=== PATIENT | male | born 1940 | race Caucasian/White ===

== ENCOUNTER → 2021-05-13 13:42 | Outpatient (CLI) | payer MEDICARE, OTHER, SELFPAY ==
--- NOTE | 2021-05-13 13:46 | DI.RAD.S_ITS ---
PROCEDURE: XR KNEE LT 3V INDICATIONS: chronic left knee pain TECHNIQUE: 3 views of the knee were acquired. COMPARISON: None. FINDINGS: Bones: No fractures or dislocations. No suspicious bony lesions. Moderate medial lateral compartmental joint space narrowing. Moderate patellofemoral joint space narrowing as well. Soft tissues: No joint effusion. No suspicious soft tissue calcifications. 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 on 05/13/2021 at 15:58
--- NOTE | 2021-05-13 13:46 | DI.RAD.S_ITS ---
PROCEDURE: XR ANKLE LT MIN 3V INDICATIONS: chronic left ankle pain TECHNIQUE: 3 views of the ankle were acquired. COMPARISON: None. FINDINGS: Bones: No fractures or dislocations. Ankle mortise is normally aligned. No suspicious bony lesions. 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 Midfoot degenerative arthritis. Soft tissues: No tibiotalar joint effusion. Achilles tendon appears normal. IMPRESSION: Degenerative arthritis. No evidence acute bony abnormality of the left ankle. If clinical suspicion and/or symptoms persist, further assessment with repeat plain films, or advanced imaging (e.g., CT, MRI, or bone scan) may be helpful for further assessment. Dictated by: Nomi Carlin M.D. on 05/13/2021 at 14:46 Approved by: Nomi Carlin M.D. on 05/13/2021 at 14:47
== END ==
PROVIDERS: PCP Family Medicine; Referring Provider Family Medicine; Visit Provider Family Medicine
DX: M17.12 Unilateral primary osteoarthritis, left knee (principal); M25.562 Pain in left knee; M19.072 Primary osteoarthritis, left ankle and foot; M25.572 Pain in left ankle and joints of left foot; G89.29 Other chronic pain
CPT/HCPCS: 73562; 73610

== ENCOUNTER → 2021-10-08 10:02 | Outpatient (CLI) | payer MEDICARE, OTHER, SELFPAY ==
[2021-10-08 11:53] LABS: Add Manual Diff / Slide Review NO; Basophils Absolute Auto 0 /uL (0-100); Basophils Percent Auto 0.5 % (0-2); Eosinophils Absolute Auto 100 /uL (0-450); Eosinophils Percent Auto 1.3 % (2-4); Hematocrit 43.4 % (41-53); Hemoglobin 14.7 g/dL (13.5-17.5); Lymphocytes Absolute Auto 1000 /uL (1100-4500); Lymphocytes Percent Auto 12.6 % (25-40); Mean Corpuscular Hemoglobin 31.6 PG (26-34); Mean Corpuscular Volume 93.2 fL (80-100); Monocytes Absolute Auto 700 /uL (0-900); Neutrophils Absolute Auto 6300 /uL (1500-7000); Neutrophils Percent Auto 76.6 % (50-75); Platelet Count 204 X10^3/uL (150-400); Red Blood Cell Count 4.65 X10^6/uL (4.5-5.9); Red Cell Distribution Width 13.8 % (11.6-14.8); White Blood Cell Count 8.2 X10^3/uL (4.5-11.0)
[2021-10-08 12:33] LABS: Alanine Aminotransferase 18 IU/L (<50); Albumin Globulin Ratio 1.2 (1.0-2.8); Alkaline Phosphatase 68 U/L (38-126); Aspartate Aminotransferase 23 IU/L (17-59); BUN Creatinine Ratio 11.5 (6-22); Bilirubin Total 0.7 mg/dL (0.2-1.3); Blood Urea Nitrogen 12 mg/dL (9-20); Calcium 9.1 mg/dL (8.4-10.2); Carbon Dioxide 27 mmol/L (22-32); Chloride 104 mmol/L (98-107); Cholesterol 151 mg/dL (140-199); Estimated Glomerular Filt Rate > 60 mL/min (>60); Globulin 3.4 g/dL (1.7-4.1); Glucose 90 mg/dL (80-110); HDL Cholesterol 36 mg/dL (40-60); HEMOLYSIS < 15 (0-50); LDL Cholesterol Calculated 93 mg/dL (<100); Potassium 4.2 mmol/L (3.4-5.1); Sodium 140 mmol/L (137-145); Total Protein 7.4 g/dL (6.3-8.2); Triglycerides 110 mg/dL (35-150)
[2021-10-08 13:04] LABS: Prostate Specific Antigen Scrn 5.03 ng/mL (0.1-4.0)
[2021-10-08 16:27] LABS: Creatinine Urine Random 305.8 mg/dL
[2021-10-08 16:28] LABS: Microalbumin Urine Random 3.7 mg/dL (0-1.6)
== END ==
PROVIDERS: PCP Family Medicine; Referring Provider Family Medicine; Visit Provider Family Medicine
DX: I10 Essential (primary) hypertension (principal); Z12.5 Encounter for screening for malignant neoplasm of prostate; N40.0 Benign prostatic hyperplasia without lower urinary tract symptoms; M10.9 Gout, unspecified; I48.91 Unspecified atrial fibrillation
CPT/HCPCS: 36415; 80053; 80061; 82043; 82570; 84443; 85025; G0103

== ENCOUNTER → 2022-09-29 10:01 | Outpatient (CLI) | payer MEDICARE, OTHER, SELFPAY ==
--- NOTE | 2022-09-29 10:05 | DI.RAD.S_ITS ---
PROCEDURE: XR HIP W PEL IF DONE LT 2V INDICATIONS: left hip and low back pain TECHNIQUE: 2 views of the hip were acquired. COMPARISON: None. FINDINGS: Bones: No fractures or dislocations. No suspicious bony lesions. The visualized pelvic ring appears intact. Lower lumbar spine degenerative changes noted. Moderate bilateral hip joint space narrowing. No marginal osteophyte. No fracture. Soft tissues: No suspicious soft tissue calcifications or masses. IMPRESSION: Moderate bilateral hip joint space narrowing. No marginal osteophyte. Approved by: Ameya Zheng M.D. on 09/29/2022 at 13:07
--- NOTE | 2022-09-29 10:05 | DI.RAD.S_ITS ---
PROCEDURE: XR LUMBAR SPINE 2-3V INDICATIONS: left hip and low back pain TECHNIQUE: 3 views of the lumbar spine were acquired. COMPARISON: None. FINDINGS: Bones: 5 [id number] vertebrae are present. There is normal bony alignment. No vertebral body compression fractures. No suspicious bony lesions. Disc space narrowing, arthropathy anterior osteophytes noted throughout the exam. Grade 1 anterior spondylolisthesis L4-5 Soft tissues: Overlying bowel gas pattern is normal. No suspicious soft tissue calcifications. IMPRESSION: Degenerative disc disease and arthropathy results in grade 1 anterior spondylolisthesis L4-5 Approved by: Ameya Zheng M.D. on 09/29/2022 at 13:06
[2022-09-29 11:10] LABS: Add Manual Diff / Slide Review NO; Basophils Absolute Auto 0 /uL (0-100); Basophils Percent Auto 0.5 % (0-2); Eosinophils Absolute Auto 100 /uL (0-450); Eosinophils Percent Auto 1.2 % (2-4); Hematocrit 44.9 % (41-53); Hemoglobin 15.2 g/dL (13.5-17.5); Lymphocytes Absolute Auto 1400 /uL (1100-4500); Lymphocytes Percent Auto 13.3 % (25-40); Mean Corpuscular HGB Conc 33.9 % (30-36); Mean Corpuscular Hemoglobin 31.7 PG (26-34); Mean Corpuscular Volume 93.6 fL (80-100); Monocytes Absolute Auto 900 /uL (0-900); Monocytes Percent Auto 8.9 % (3-14); Neutrophils Absolute Auto 8100 /uL (1500-7000); Neutrophils Percent Auto 76.1 % (50-75); Platelet Count 227 X10^3/uL (150-400); White Blood Cell Count 10.7 X10^3/uL (4.5-11.0)
[2022-09-29 12:12] LABS: Alanine Aminotransferase 22 IU/L (<50); Albumin 4.2 g/dL (3.5-5.0); Albumin Globulin Ratio 1.2 (1.0-2.8); Alkaline Phosphatase 76 U/L (38-126); Aspartate Aminotransferase 27 IU/L (17-59); BUN Creatinine Ratio 10.4 (6-22); Bilirubin Total 0.8 mg/dL (0.2-1.3); Blood Urea Nitrogen 12 mg/dL (9-20); Calcium 9.4 mg/dL (8.4-10.2); Carbon Dioxide 27 mmol/L (22-32); Chloride 103 mmol/L (98-107); Cholesterol 159 mg/dL (140-199); Estimated Glomerular Filt Rate > 60 mL/min (>60); Globulin 3.5 g/dL (1.7-4.1); Glucose 93 mg/dL (80-110); HDL Cholesterol 38 mg/dL (40-60); HEMOLYSIS 30 (0-50); LDL Cholesterol Calculated 92 mg/dL (<100); Potassium 4.2 mmol/L (3.4-5.1); Sodium 140 mmol/L (137-145); Total Protein 7.7 g/dL (6.3-8.2); Triglycerides 143 mg/dL (35-150)
[2022-09-29 12:48] LABS: TSH w/ Reflex to FT4 5.23 uIU/mL (0.47-4.68)
[2022-09-29 13:01] LABS: Creatinine Urine Random 287.8 mg/dL
[2022-09-29 13:06] LABS: Microalbumi Creatinin Ratio Ur 13.2 ug/mg CR (<30); Microalbumin Urine Random 3.8 mg/dL (0-1.6)
[2022-09-29 13:13] LABS: Free T4, Direct Thyroxine 1.04 ng/dL (0.78-2.19)
== END ==
LOC: LAB 10:02 → RAD 10:06
PROVIDERS: PCP Family Medicine; Referring Provider Family Medicine; Visit Provider Family Medicine
DX: M43.16 Spondylolisthesis, lumbar region (principal); M51.36 Other intervertebral disc degeneration, lumbar region; M47.816 Spondylosis without myelopathy or radiculopathy, lumbar region; M25.552 Pain in left hip; I10 Essential (primary) hypertension; M54.50 Low back pain, unspecified; Z00.00 Encounter for general adult medical examination without abnormal findings; I48.91 Unspecified atrial fibrillation; M10.9 Gout, unspecified; N40.0 Benign prostatic hyperplasia without lower urinary tract symptoms
CPT/HCPCS: 36415; 72100; 73502; 80053; 80061; 82043; 82570; 84439; 84443; 85025

== ENCOUNTER 2022-11-11 07:30 | Outpatient (RCR) | payer MEDICARE, OTHER, SELFPAY ==
--- NOTE | 2022-11-03 17:02 | PT.OIE ---
Current Diagnoses Bilateral primary osteoarthritis of hip (11/03/22) Spondylosis without myelopathy or radiculopathy, site unspecified (11/03/22) Past Medical History (Last Updated 06/06/21 @ 13:14 by Maria Elena Mccarty) Afib BPH (benign prostatic hyperplasia) Gout (~1997) Hypertension Visit Care Team Role Provider Type Florin Marcum MD Attending Provider Physician Primary Care Provider Referring Provider Specialty: [facility] Address: [address] [place] [address], [facility] Email: [email or web address] Physical Therapy Initial Evaluation PT-OP-A Visit Information Start: 11/03/22 16:51 Freq: Status: Active Protocol: Document 11/03/22 16:52 ED (Rec: 11/03/22 17:02 ED [id number]) Out-Patient Physical Therapy Visit Information Visit Information Visit Type Initial Evaluation Visit Note 02/17 Visit Start Time 12:45 Visit Stop Time 13:30 Total Visit Minutes 45 Visit Number 1 Evaluation Information Evaluation Date 11/03/22 PT-OP-B Current Condition Start: 11/03/22 16:51 Freq: Status: Active Protocol: Document 11/03/22 16:52 ED (Rec: 11/03/22 17:02 ED [id number]) Current Condition History of Current Condition Onset Date March Current Complaints low back pain, L hip pain History of Current Condition Pt states that about 8 months ago that he noticed he had an abnormal gait that was sometimes accompanied with L hip or low back pain. Pt states that previously he was walking normally. He denied having any particular movement or daily activity that particularly aggravated his low back pain or hip; it is rather consistent. He is not currently exercising but used to prior to COVID. Treatment Goals Patient/Caregiver Goals be able to walk normally again PT-OP-C Subjective Start: 11/03/22 16:51 Freq: Status: Active Protocol: Document 11/03/22 16:52 ED (Rec: 11/03/22 17:02 ED [id number]) Patient Questionnaires Oswestry Low Back Index Oswestry Score 50 = 26.0 % Oswestry Impairment 20 to 39% Impaired (Score 20- 39) PT-OP-D Balance Start: 11/03/22 16:51 Freq: Status: Active Protocol: Document 11/03/22 16:52 ED (Rec: 11/03/22 17:02 ED [id number]) Balance Tests Single Limb Standing Single Limb- Right unable Single Limb- Left unable PT-OP-E Functional Tests Start: 11/03/22 16:51 Freq: Status: Active Protocol: Document 11/03/22 16:52 ED (Rec: 11/03/22 17:02 ED [id number]) Functional Tests 30 Second Sit to Stand Test Score 9 Comments IE: 11/03; 18'' seat no UEs PT-OP-K Range of Motion Start: 11/03/22 16:51 Freq: Status: Active Protocol: Document 11/03/22 16:52 ED (Rec: 11/03/22 17:02 ED [id number]) Lumbar Spine Range of Motion Lumbar Spine Active Testing Position Sitting Flexion 40 Extension 5 PT-OP-L Special Tests Start: 11/03/22 16:51 Freq: Status: Active Protocol: Document 11/03/22 16:52 ED (Rec: 11/03/22 17:02 ED [id number]) Special Tests Lumbar Spine Special Tests Standing Flexion Test Results - PT-OP-T Assessment and Plan Start: 11/03/22 16:51 Freq: Status: Active Protocol: Document 11/03/22 16:52 ED (Rec: 11/03/22 17:02 ED [id number]) Physical Therapy Assessment Rehab Potential Rehabilitation Potential Fair Evaluation Complexity Number of Personal Factors/Comorbidities 1-2 Number of Body Systems Impaired 1-2 Clinical Presentation at Evaluation Stable Impairments Impairments Activity Tolerance,Balance, Functional Activities,Pain, Strength Goals 30 second STS Impairment squat Short Term Goal (STG) Pt will improve to 10 reps during 30 second sit<>stand STG Duration 3 weeks Yard Switcher Goal (LTG) Pt will improve to 15 reps during 30 second sit<>stand. LTG Duration 6-8 weeks balance Impairment balance Mcfp Goal (LTG) Pt will be able to stand on single leg for >5 seconds. LTG Duration 6-8 weeks % improvement Impairment % improvement Short Term Goal (STG) Pt will report 15% improvement in low back pain and/or hip pain. STG Duration 3 weeks Mcfp Goal (LTG) Pt will report 30% improvement in low back pain and/or hip pain. LTG Duration 6-8 weeks HEP Impairment HEP Short Term Goal (STG) Pt will report performing HEP >3 days/week. STG Duration 3 weeks Mcfp Goal (LTG) Pt will report performing HEP >3 days/week. LTG Duration 6-8 weeks Assessment Summary Assessment Pt reported to PT for low back pain and L hip pain and he attributes those to his abnormal gait. PT was unable to reproduce his low back or hip pain today and he denied any particular activity being pain provoking but he reported the pain is fairly constant. Pt was unable to balance on single leg for any appreciable amount of time. PT provided patient c/ HEP of : sit<> stands, bridges, SL balance c/ UE support, and lower trunk rotations which he was able to perform comfortably today. Physical Therapy Plan Frequency and Duration Frequency of Treatment 2x/Week Duration of treatment (weeks) 10 Plan of Care Start Date 11/03/22 Plan of Care End Date 02/01/23 Therapeutic Interventions Therapeutic Interventions Balance Training,Gait Training ,Home Exercise Program,Joint Mobilizations,Manual Therapy, Neuromuscular Re-education, Orthotic/Prosthetic Management ,Patient/Caregiver Education, Self-Care/Home Management,Soft Tissue Mobilization,Taping, Therapeutic Activities, Therapeutic Exercises Next Visit Focus/Plan Next Note Type Treatment Note Next Visit Plan recumbent bike, HEP (STS, bridge, LTR, standing marches c/ UE support), LAQ, row, PB flexion
--- NOTE | 2022-11-03 17:02 | PT.OPPOC ---
Physical, Occupational & Speech Therapy At [facility] Current Diagnoses Bilateral primary osteoarthritis of hip (11/03/22) Spondylosis without myelopathy or radiculopathy, site unspecified (11/03/22) Visit Care Team Role Provider Type Florin Marcum MD Attending Provider Physician Primary Care Provider Referring Provider Specialty: [facility] Address: [address] [place] [address] Email: [email or web address] Plan Of Care PT-OP-T Assessment and Plan Start: 11/03/22 16:51 Freq: Status: Active Protocol: Document 11/03/22 16:52 ED (Rec: 11/03/22 17:02 ED [id number]) Physical Therapy Assessment Rehab Potential Rehabilitation Potential Fair Evaluation Complexity Number of Personal Factors/Comorbidities 1-2 Number of Body Systems Impaired 1-2 Clinical Presentation at Evaluation Stable Impairments Impairments Activity Tolerance,Balance, Functional Activities,Pain, Strength Goals 30 second STS Impairment squat Short Term Goal (STG) Pt will improve to 10 reps during 30 second sit<>stand STG Duration 3 weeks Patient Access Representative Goal (LTG) Pt will improve to 15 reps during 30 second sit<>stand. LTG Duration 6-8 weeks balance Impairment balance Patient Access Representative Goal (LTG) Pt will be able to stand on single leg for >5 seconds. LTG Duration 6-8 weeks % improvement Impairment % improvement Short Term Goal (STG) Pt will report 15% improvement in low back pain and/or hip pain. STG Duration 3 weeks Retirement Goal (LTG) Pt will report 30% improvement in low back pain and/or hip pain. LTG Duration 6-8 weeks HEP Impairment HEP Short Term Goal (STG) Pt will report performing HEP >3 days/week. STG Duration 3 weeks Patient Access Representative Goal (LTG) Pt will report performing HEP >3 days/week. LTG Duration 6-8 weeks Assessment Summary Assessment Pt reported to PT for low back pain and L hip pain and he attributes those to his abnormal gait. PT was unable to reproduce his low back or hip pain today and he denied any particular activity being pain provoking but he reported the pain is fairly constant. Pt was unable to balance on single leg for any appreciable amount of time. PT provided patient c/ HEP of : sit<> stands, bridges, SL balance c/ UE support, and lower trunk rotations which he was able to perform comfortably today. Physical Therapy Plan Frequency and Duration Frequency of Treatment 2x/Week Duration of treatment (weeks) 10 Plan of Care Start Date 11/03/22 Plan of Care End Date 02/01/23 Therapeutic Interventions Therapeutic Interventions Balance Training,Gait Training ,Home Exercise Program,Joint Mobilizations,Manual Therapy, Neuromuscular Re-education, Orthotic/Prosthetic Management ,Patient/Caregiver Education, Self-Care/Home Management,Soft Tissue Mobilization,Taping, Therapeutic Activities, Therapeutic Exercises Next Visit Focus/Plan Next Note Type Treatment Note Next Visit Plan recumbent bike, HEP (STS, bridge, LTR, standing marches c/ UE support), LAQ, row, PB flexion Plan of Care Dates Plan of Care Start Date 11/03/22 Plan of Care End Date 02/01/23 Electronically Signed by: Ameya Conner, PT 11/03/22 4547 If you are in agreement with this Plan of Care, please return a signed and dated copy. I have reviewed this Plan of Care and certify that the skilled therapy services above are required to meet the patient?s needs. Physician Signature Date Printed Name and Credentials Clinical Instructor Signature Printed Name and Credentials
--- NOTE | 2022-11-05 12:12 | PT.OTN ---
Current Diagnoses Bilateral primary osteoarthritis of hip (11/05/22) Spondylosis without myelopathy or radiculopathy, site unspecified (11/05/22) Physical Therapy Treatment Note PT-OP-A Visit Information Start: 11/03/22 16:51 Freq: Status: Active Protocol: Document 11/05/22 12:01 ED (Rec: 11/05/22 12:11 ED [id number]) Out-Patient Physical Therapy Visit Information Visit Information Visit Type Treatment Note Visit Note 03/20 Visit Start Time 11:30 Visit Stop Time 12:10 Total Visit Minutes 40 Visit Number 2 PT-OP-B Current Condition Start: 11/03/22 16:51 Freq: Status: Active Protocol: Document 11/03/22 16:52 ED (Rec: 11/03/22 17:02 ED [id number]) Current Condition History of Current Condition Onset Date March Current Complaints low back pain, L hip pain History of Current Condition Pt states that about 8 months ago that he noticed he had an abnormal gait that was sometimes accompanied with L hip or low back pain. Pt states that previously he was walking normally. He denied having any particular movement or daily activity that particularly aggravated his low back pain or hip; it is rather consistent. He is not currently exercising but used to prior to COVID. Treatment Goals Patient/Caregiver Goals be able to walk normally again PT-OP-C Subjective Start: 11/03/22 16:51 Freq: Status: Active Protocol: Document 11/05/22 12:01 ED (Rec: 11/05/22 12:11 ED [id number]) OP-PT Subjective Patient Comments Patient Comments Pt states that he laughed by how sore he has been from doing 3x10 sit<>stands at home . He denies any increases in pain in his hip or back but has noticed muscle soreness. PT-OP-D Balance Start: 11/03/22 16:51 Freq: Status: Active Protocol: Document 11/03/22 16:52 ED (Rec: 11/03/22 17:02 ED [id number]) Balance Tests Single Limb Standing Single Limb- Right unable Single Limb- Left unable PT-OP-E Functional Tests Start: 11/03/22 16:51 Freq: Status: Active Protocol: Document 11/03/22 16:52 ED (Rec: 11/03/22 17:02 ED [id number]) Functional Tests 30 Second Sit to Stand Test Score 9 Comments IE: 11/03; 18'' seat no UEs PT-OP-K Range of Motion Start: 11/03/22 16:51 Freq: Status: Active Protocol: Document 11/03/22 16:52 ED (Rec: 11/03/22 17:02 ED [id number]) Lumbar Spine Range of Motion Lumbar Spine Active Testing Position Sitting Flexion 40 Extension 5 PT-OP-L Special Tests Start: 11/03/22 16:51 Freq: Status: Active Protocol: Document 11/03/22 16:52 ED (Rec: 11/03/22 17:02 ED [id number]) Special Tests Lumbar Spine Special Tests Standing Flexion Test Results - PT-OP-Q Treatments Start: 11/03/22 16:51 Freq: Status: Active Protocol: Document 11/05/22 12:01 ED (Rec: 11/05/22 12:11 ED [id number]) Cardio Equipment Recumbent Bicycle Duration (Minutes) 10 Resistance 5 Therapeutic Exercises Supine Exercises hip bridge Reps/Minutes 3x10 Comments attempted SL but not strong enough for controlled movement Sitting Exercises PB flexion Reps/Minutes 3x10 Therapeutic Activity Therapeutic Activity Squat Name STS Reps/Minutes 3x10 Comments no UE assist Neuro Re-Education Treatment Balance Activities dynamic balance Details alternating marching Reps/Duration 1x10/leg Comments UE assist on railing; cued for slow movement PT-OP-T Assessment and Plan Start: 11/03/22 16:51 Freq: Status: Active Protocol: Document 11/05/22 12:01 ED (Rec: 11/05/22 12:11 ED [id number]) Physical Therapy Assessment Goals 30 second STS Impairment squat Short Term Goal (STG) Pt will improve to 10 reps during 30 second sit<>stand STG Duration 3 weeks Longterm Goal (LTG) Pt will improve to 15 reps during 30 second sit<>stand. LTG Duration 6-8 weeks balance Impairment balance Water Ski Assembler Goal (LTG) Pt will be able to stand on single leg for >5 seconds. LTG Duration 6-8 weeks % improvement Impairment % improvement Short Term Goal (STG) Pt will report 15% improvement in low back pain and/or hip pain. STG Duration 3 weeks Longterm Goal (LTG) Pt will report 30% improvement in low back pain and/or hip pain. LTG Duration 6-8 weeks HEP Impairment HEP Short Term Goal (STG) Pt will report performing HEP >3 days/week. STG Duration 3 weeks Water Ski Assembler Goal (LTG) Pt will report performing HEP >3 days/week. LTG Duration 6-8 weeks Assessment Summary Assessment PT had patient perform a low total volume of movements today to mitigate muscle soreness. Started on recumbent bike for repetitive knee and hip ROM followed by bridges and squats. Pt denied any pain during movements today. Physical Therapy Plan Frequency and Duration Frequency of Treatment 2x/Week Duration of treatment (weeks) 10 Plan of Care Start Date 11/03/22 Plan of Care End Date 02/01/23 Therapeutic Interventions Therapeutic Interventions Balance Training,Gait Training ,Home Exercise Program,Joint Mobilizations,Manual Therapy, Neuromuscular Re-education, Orthotic/Prosthetic Management ,Patient/Caregiver Education, Self-Care/Home Management,Soft Tissue Mobilization,Taping, Therapeutic Activities, Therapeutic Exercises Next Visit Focus/Plan Next Note Type Treatment Note Next Visit Plan recumbent bike, HEP (STS, bridge, LTR, standing marches c/ UE support), LAQ, row, PB flexion
--- NOTE | 2022-11-11 08:15 | PT.OTN ---
Current Diagnoses Bilateral primary osteoarthritis of hip (11/05/22) Spondylosis without myelopathy or radiculopathy, site unspecified (11/05/22) Physical Therapy Treatment Note PT-OP-A Visit Information Start: 11/03/22 16:51 Freq: Status: Active Protocol: Document 11/11/22 08:12 ED (Rec: 11/11/22 08:15 ED [id number]) Out-Patient Physical Therapy Visit Information Visit Information Visit Type Treatment Note Visit Note 04/17 Visit Start Time 07:30 Visit Stop Time 08:15 Total Visit Minutes 45 Visit Number 3 PT-OP-B Current Condition Start: 11/03/22 16:51 Freq: Status: Active Protocol: Document 11/03/22 16:52 ED (Rec: 11/03/22 17:02 ED [id number]) Current Condition History of Current Condition Onset Date March Current Complaints low back pain, L hip pain History of Current Condition Pt states that about 8 months ago that he noticed he had an abnormal gait that was sometimes accompanied with L hip or low back pain. Pt states that previously he was walking normally. He denied having any particular movement or daily activity that particularly aggravated his low back pain or hip; it is rather consistent. He is not currently exercising but used to prior to COVID. Treatment Goals Patient/Caregiver Goals be able to walk normally again PT-OP-C Subjective Start: 11/03/22 16:51 Freq: Status: Active Protocol: Document 11/11/22 08:12 ED (Rec: 11/11/22 08:15 ED [id number]) OP-PT Subjective Patient Comments Patient Comments Pt states that he was not too sore after last PT session. He feels like he is moving around a little better already . PT-OP-D Balance Start: 11/03/22 16:51 Freq: Status: Active Protocol: Document 11/03/22 16:52 ED (Rec: 11/03/22 17:02 ED [id number]) Balance Tests Single Limb Standing Single Limb- Right unable Single Limb- Left unable PT-OP-E Functional Tests Start: 11/03/22 16:51 Freq: Status: Active Protocol: Document 11/03/22 16:52 ED (Rec: 11/03/22 17:02 ED [id number]) Functional Tests 30 Second Sit to Stand Test Score 9 Comments IE: 11/03; 18'' seat no UEs PT-OP-K Range of Motion Start: 11/03/22 16:51 Freq: Status: Active Protocol: Document 11/03/22 16:52 ED (Rec: 11/03/22 17:02 ED [id number]) Lumbar Spine Range of Motion Lumbar Spine Active Testing Position Sitting Flexion 40 Extension 5 PT-OP-L Special Tests Start: 11/03/22 16:51 Freq: Status: Active Protocol: Document 11/03/22 16:52 ED (Rec: 11/03/22 17:02 ED [id number]) Special Tests Lumbar Spine Special Tests Standing Flexion Test Results - PT-OP-Q Treatments Start: 11/03/22 16:51 Freq: Status: Active Protocol: Document 11/11/22 08:12 ED (Rec: 11/11/22 08:15 ED [id number]) Cardio Equipment Recumbent Bicycle Duration (Minutes) 10 Resistance 5 Therapeutic Exercises Supine Exercises hip bridge Resistance 10# Reps/Minutes 3x10 Comments attempted SL but not strong enough for controlled movement Sitting Exercises LAQ Resistance L2 Reps/Minutes [id number] PB flexion Reps/Minutes 3x10 Standing Exercises heel cord stretch Reps/Minutes 2x60'' Therapeutic Activity Therapeutic Activity Squat Name STS Reps/Minutes 3x10 Comments no UE assist 10# Neuro Re-Education Treatment Balance Activities dynamic balance Details alternating marching Reps/Duration 1x10/leg Comments UE assist on railing; cued for slow movement PT-OP-T Assessment and Plan Start: 11/03/22 16:51 Freq: Status: Active Protocol: Document 11/11/22 08:12 ED (Rec: 11/11/22 08:15 ED [id number]) Physical Therapy Assessment Goals 30 second STS Impairment squat Short Term Goal (STG) Pt will improve to 10 reps during 30 second sit<>stand STG Duration 3 weeks Audio Operator Goal (LTG) Pt will improve to 15 reps during 30 second sit<>stand. LTG Duration 6-8 weeks balance Impairment balance Fpc Goal (LTG) Pt will be able to stand on single leg for >5 seconds. LTG Duration 6-8 weeks % improvement Impairment % improvement Short Term Goal (STG) Pt will report 15% improvement in low back pain and/or hip pain. STG Duration 3 weeks Fpc Goal (LTG) Pt will report 30% improvement in low back pain and/or hip pain. LTG Duration 6-8 weeks HEP Impairment HEP Short Term Goal (STG) Pt will report performing HEP >3 days/week. STG Duration 3 weeks Audio Operator Goal (LTG) Pt will report performing HEP >3 days/week. LTG Duration 6-8 weeks Assessment Summary Assessment Pt tolerated treatment well which focused on LE strengthening and mobility. Pt continues to have slightly waddling gait c/ decreased knee flexion and hip flexion. Will perform 6MWT at next session to establish baseline activity tolerance. Physical Therapy Plan Frequency and Duration Frequency of Treatment 2x/Week Duration of treatment (weeks) 10 Plan of Care Start Date 11/03/22 Plan of Care End Date 02/01/23 Therapeutic Interventions Therapeutic Interventions Balance Training,Gait Training ,Home Exercise Program,Joint Mobilizations,Manual Therapy, Neuromuscular Re-education, Orthotic/Prosthetic Management ,Patient/Caregiver Education, Self-Care/Home Management,Soft Tissue Mobilization,Taping, Therapeutic Activities, Therapeutic Exercises Next Visit Focus/Plan Next Note Type Treatment Note Next Visit Plan recumbent bike, 6MWT, HEP (STS , bridge, LTR, standing marches c/ UE support), LAQ, row, PB flexion
--- NOTE | 2022-12-08 15:06 | PT-OP ANOTE ---
PT spoke with patient after he cancelled his most recent visit. Pt stated that he was feeling sick but will call and schedule when he feels better.
--- NOTE | 2022-12-15 09:47 | PT.OPDS ---
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) Visit Care Team Role Provider Type Florin Marcum MD Attending Provider Physician Primary Care Provider Referring Provider Specialty: Family Practice Address: [address] [place] [address], [facility] Email: [email or web address] Visit Number Visit Number 3 Discharge Summary PT-OP-B Current Condition Start: 11/03/22 16:51 Freq: Status: Active Protocol: Document 11/03/22 16:52 ED (Rec: 11/03/22 17:02 ED [id number]) Current Condition History of Current Condition Onset Date March Current Complaints low back pain, L hip pain History of Current Condition Pt states that about 8 months ago that he noticed he had an abnormal gait that was sometimes accompanied with L hip or low back pain. Pt states that previously he was walking normally. He denied having any particular movement or daily activity that particularly aggravated his low back pain or hip; it is rather consistent. He is not currently exercising but used to prior to COVID. Treatment Goals Patient/Caregiver Goals be able to walk normally again PT-OP-C Subjective Start: 11/03/22 16:51 Freq: Status: Active Protocol: Document 11/11/22 08:12 ED (Rec: 11/11/22 08:15 ED [id number]) OP-PT Subjective Patient Comments Patient Comments Pt states that he was not too sore after last PT session. He feels like he is moving around a little better already . PT-OP-D Balance Start: 11/03/22 16:51 Freq: Status: Active Protocol: Document 11/03/22 16:52 ED (Rec: 11/03/22 17:02 ED [id number]) Balance Tests Single Limb Standing Single Limb- Right unable Single Limb- Left unable PT-OP-E Functional Tests Start: 11/03/22 16:51 Freq: Status: Active Protocol: Document 11/03/22 16:52 ED (Rec: 11/03/22 17:02 ED [id number]) Functional Tests 30 Second Sit to Stand Test Score 9 Comments IE: 11/03; 18'' seat no UEs PT-OP-K Range of Motion Start: 11/03/22 16:51 Freq: Status: Active Protocol: Document 11/03/22 16:52 ED (Rec: 11/03/22 17:02 ED [id number]) Lumbar Spine Range of Motion Lumbar Spine Active Testing Position Sitting Flexion 40 Extension 5 PT-OP-L Special Tests Start: 11/03/22 16:51 Freq: Status: Active Protocol: Document 11/03/22 16:52 ED (Rec: 11/03/22 17:02 ED [id number]) Special Tests Lumbar Spine Special Tests Standing Flexion Test Results - PT-OP-T Assessment and Plan Start: 11/03/22 16:51 Freq: Status: Active Protocol: Document 12/15/22 09:46 ED (Rec: 12/15/22 09:47 ED [id number]) Physical Therapy Assessment Goals 30 second STS Impairment squat Short Term Goal (STG) Pt will improve to 10 reps during 30 second sit<>stand STG Duration 3 weeks Remodeler Goal (LTG) Pt will improve to 15 reps during 30 second sit<>stand. LTG Duration 6-8 weeks balance Impairment balance Custodial Goal (LTG) Pt will be able to stand on single leg for >5 seconds. LTG Duration 6-8 weeks % improvement Impairment % improvement Short Term Goal (STG) Pt will report 15% improvement in low back pain and/or hip pain. STG Duration 3 weeks Remodeler Goal (LTG) Pt will report 30% improvement in low back pain and/or hip pain. LTG Duration 6-8 weeks HEP Impairment HEP Short Term Goal (STG) Pt will report performing HEP >3 days/week. STG Duration 3 weeks Remodeler Goal (LTG) Pt will report performing HEP >3 days/week. LTG Duration 6-8 weeks Assessment Summary Assessment Pt last seen for physical therapy on 11/11/22. Pt had scheduled additional visits afterwards but cancelled them and has not returned since. Over a month has lapsed since he was last seen so he will be discharged from PT at this time. Physical Therapy Plan Discharge Physical Therapy Discharge Reasons No Longer Attending PT
== END 2022-12-17 14:46 | disposition home or self-care (01) ==
LOC: PHYS 07:30
PROVIDERS: Absent Provider Family Medicine; PCP Family Medicine; Referring Provider Family Medicine; Visit Provider Family Medicine
DX: M16.0 Bilateral primary osteoarthritis of hip (principal); M47.819 Spondylosis without myelopathy or radiculopathy, site unspecified
CPT/HCPCS: 97110; 97112; 97161; 97530

== ENCOUNTER → 2022-11-19 13:48 | Outpatient (CLI) | payer MEDICARE, OTHER, SELFPAY ==
--- NOTE | 2022-11-19 13:51 | DI.RAD.S_ITS ---
PROCEDURE: XR WRIST RT MIN 3V INDICATIONS: pain/swelling to R wrist x 3 weeks TECHNIQUE: 3 views of the wrist were acquired. COMPARISON: None. FINDINGS: Bones: No fractures or dislocations. No suspicious bony lesions. 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 Soft tissues: No suspicious soft tissue calcifications. IMPRESSION: No acute osseous abnormality. If pain persists with conservative management, consider repeat x-ray in 10-14 days or cross-sectional imaging. Dictated by: Domingo Otoole M.D. on 11/19/2022 at 14:54 Approved by: Domingo Otoole M.D. on 11/19/2022 at 14:55
[2022-11-19 14:45] LABS: Add Manual Diff / Slide Review NO; Basophils Absolute Auto 100 /uL (0-100); Basophils Percent Auto 0.5 % (0-2); Eosinophils Absolute Auto 100 /uL (0-450); Eosinophils Percent Auto 0.7 % (2-4); Hematocrit 43.5 % (41-53); Hemoglobin 14.8 g/dL (13.5-17.5); Lymphocytes Absolute Auto 1200 /uL (1100-4500); Lymphocytes Percent Auto 9.7 % (25-40); Mean Corpuscular HGB Conc 33.9 % (30-36); Mean Corpuscular Hemoglobin 31.7 PG (26-34); Mean Corpuscular Volume 93.3 fL (80-100); Monocytes Absolute Auto 1200 /uL (0-900); Monocytes Percent Auto 9.7 % (3-14); Neutrophils Absolute Auto 9500 /uL (1500-7000); Neutrophils Percent Auto 79.4 % (50-75); Platelet Count 198 X10^3/uL (150-400); Red Blood Cell Count 4.67 X10^6/uL (4.5-5.9); Red Cell Distribution Width 13.7 % (11.6-14.8); White Blood Cell Count 11.9 X10^3/uL (4.5-11.0)
[2022-11-19 15:02] LABS: Erythrocyte Sedimentation Rate 38 MM/HR (0-15)
[2022-11-19 15:06] LABS: Uric Acid 5.6 mg/dL (3.5-8.5)
== END ==
PROVIDERS: PCP Family Medicine; Referring Provider Physician Assistant; Visit Provider Physician Assistant
DX: M10.9 Gout, unspecified (principal)
CPT/HCPCS: 36415; 73110; 84550; 85025; 85651

== ENCOUNTER → 2022-12-02 12:55 | Outpatient (CLI) | payer MEDICARE, OTHER, SELFPAY ==
[2022-12-02 14:57] LABS: Add Manual Diff / Slide Review NO; Basophils Absolute Auto 100 /uL (0-100); Basophils Percent Auto 0.6 % (0-2); Eosinophils Absolute Auto 100 /uL (0-450); Eosinophils Percent Auto 1.4 % (2-4); Hematocrit 43.3 % (41-53); Hemoglobin 14.6 g/dL (13.5-17.5); Lymphocytes Absolute Auto 1300 /uL (1100-4500); Lymphocytes Percent Auto 14.3 % (25-40); Mean Corpuscular HGB Conc 33.7 % (30-36); Mean Corpuscular Hemoglobin 31.8 PG (26-34); Mean Corpuscular Volume 94.3 fL (80-100); Monocytes Absolute Auto 800 /uL (0-900); Monocytes Percent Auto 8.5 % (3-14); Neutrophils Absolute Auto 6700 /uL (1500-7000); Neutrophils Percent Auto 75.2 % (50-75); Platelet Count 229 X10^3/uL (150-400); Red Cell Distribution Width 13.8 % (11.6-14.8); White Blood Cell Count 8.9 X10^3/uL (4.5-11.0)
[2022-12-02 15:44] LABS: TSH w/ Reflex to FT4 5.25 uIU/mL (0.47-4.68)
[2022-12-02 16:27] LABS: Free T4, Direct Thyroxine 0.93 ng/dL (0.78-2.19)
== END ==
PROVIDERS: PCP Family Medicine; Referring Provider Physician Assistant; Visit Provider Physician Assistant
DX: M10.9 Gout, unspecified (principal); R79.89 Other specified abnormal findings of blood chemistry
CPT/HCPCS: 36415; 84439; 84443; 85025

== ENCOUNTER → 2022-12-10 11:50 | Outpatient (CLI) | payer MEDICARE, OTHER, SELFPAY ==
[2022-12-10 12:42] LABS: Hemoglobin A1C% w Est Avg Glu 5.3 % (4.0-6.0)
== END ==
PROVIDERS: PCP Family Medicine; Referring Provider Physician Assistant; Visit Provider Physician Assistant
DX: I10 Essential (primary) hypertension (principal); Z12.5 Encounter for screening for malignant neoplasm of prostate; Z13.1 Encounter for screening for diabetes mellitus; R35.1 Nocturia
CPT/HCPCS: 36415; 83036; G0103

== ENCOUNTER → 2023-10-18 07:35 | Outpatient (CLI) | payer MEDICARE, OTHER, SELFPAY ==
[2023-10-18 08:15] LABS: Add Manual Diff / Slide Review NO; Basophils Absolute Auto 0 /uL (0-100); Basophils Percent Auto 0.5 % (0-2); Eosinophils Absolute Auto 100 /uL (0-450); Eosinophils Percent Auto 1.6 % (2-4); Hematocrit 42.9 % (41-53); Hemoglobin 14.6 g/dL (13.5-17.5); Lymphocytes Absolute Auto 1300 /uL (1100-4500); Lymphocytes Percent Auto 15.1 % (25-40); Mean Corpuscular HGB Conc 33.9 % (30-36); Mean Corpuscular Volume 94.3 fL (80-100); Monocytes Absolute Auto 800 /uL (0-900); Monocytes Percent Auto 9.9 % (3-14); Neutrophils Absolute Auto 6100 /uL (1500-7000); Neutrophils Percent Auto 72.9 % (50-75); Platelet Count 194 X10^3/uL (150-400); Red Blood Cell Count 4.55 X10^6/uL (4.5-5.9); Red Cell Distribution Width 13.5 % (11.6-14.8); White Blood Cell Count 8.4 X10^3/uL (4.5-11.0)
[2023-10-18 08:36] LABS: Alanine Aminotransferase 17 IU/L (<50); Albumin Globulin Ratio 1.3 (1.0-2.8); Alkaline Phosphatase 77 U/L (38-126); Aspartate Aminotransferase 23 IU/L (17-59); BUN Creatinine Ratio 10.5 (6-22); Bilirubin Total 0.7 mg/dL (0.2-1.3); Blood Urea Nitrogen 12 mg/dL (9-20); Calcium 9.4 mg/dL (8.4-10.2); Carbon Dioxide 27 mmol/L (22-32); Chloride 102 mmol/L (98-107); Cholesterol 154 mg/dL (140-199); Estimated Glomerular Filt Rate > 60 mL/min (>60); Globulin 3.1 g/dL (1.7-4.1); Glucose 101 mg/dL (80-110); HDL Cholesterol 38 mg/dL (40-60); HEMOLYSIS < 15 (0-50); LDL Cholesterol Calculated 91 mg/dL (<100); Potassium 3.8 mmol/L (3.4-5.1); Sodium 138 mmol/L (137-145); Total Protein 7.1 g/dL (6.3-8.2); Triglycerides 127 mg/dL (35-150)
[2023-10-18 09:05] LABS: TSH w/ Reflex to FT4 5.84 uIU/mL (0.47-4.68)
[2023-10-18 09:08] LABS: Prostate Specific Antigen Scrn 5.94 ng/mL (0.1-4.0)
[2023-10-18 09:32] LABS: Free T4, Direct Thyroxine 0.98 ng/dL (0.78-2.19)
== END ==
PROVIDERS: PCP Family Medicine; Referring Provider Family Medicine; Visit Provider Family Medicine
DX: E03.8 Other specified hypothyroidism (principal); Z12.5 Encounter for screening for malignant neoplasm of prostate; R97.20 Elevated prostate specific antigen [PSA]; I10 Essential (primary) hypertension; M10.9 Gout, unspecified; I48.91 Unspecified atrial fibrillation
CPT/HCPCS: 36415; 80053; 80061; 84439; 84443; 85025; G0103

== ENCOUNTER → 2025-01-16 10:31 | Outpatient (CLI) | payer MEDICARE, OTHER, SELFPAY ==
[2025-01-16 11:01] LABS: Add Manual Diff / Slide Review NO; Hematocrit 44.6 % (41-53); Hemoglobin 15.0 g/dL (13.5-17.5); Lymphocytes Absolute Auto 900 /uL (1100-4500); Mean Corpuscular HGB Conc 33.7 % (30-36); Mean Corpuscular Hemoglobin 31.8 PG (26-34); Mean Corpuscular Volume 94.3 fL (80-100); Platelet Count 193 X10^3/uL (150-400)
[2025-01-16 11:30] LABS: Alanine Aminotransferase 25 IU/L (<50); Albumin 4.3 g/dL (3.5-5.0); Albumin Globulin Ratio 1.3 (1.0-2.8); Alkaline Phosphatase 83 U/L (38-126); Blood Urea Nitrogen 17 mg/dL (9-20); Calcium 9.2 mg/dL (8.4-10.2); Carbon Dioxide 25 mmol/L (22-32); Chloride 104 mmol/L (98-107); Estimated Glomerular Filt Rate > 60 mL/min (>60); Globulin 3.4 g/dL (1.7-4.1); Glucose 94 mg/dL (70-99); HEMOLYSIS < 15 (0-50); Potassium 4.0 mmol/L (3.4-5.1); Sodium 141 mmol/L (137-145); Total Protein 7.7 g/dL (6.3-8.2)
[2025-01-16 11:57] LABS: TSH w/ Reflex to FT4 6.97 uIU/mL (0.47-4.68)
[2025-01-16 12:28] LABS: Free T4, Direct Thyroxine 0.91 ng/dL (0.78-2.19)
[2025-01-17 17:03] LABS: Microalbumi Creatinin Ratio Ur 20.0 ug/mg CR (<30)
== END ==
PROVIDERS: PCP Family Medicine; Referring Provider Physician Assistant; Visit Provider Physician Assistant
DX: Z12.5 Encounter for screening for malignant neoplasm of prostate (principal); E03.8 Other specified hypothyroidism; R10.A0 Flank pain, unspecified side; R97.20 Elevated prostate specific antigen [PSA]; I10 Essential (primary) hypertension; I48.91 Unspecified atrial fibrillation; N40.0 Benign prostatic hyperplasia without lower urinary tract symptoms; M10.9 Gout, unspecified
CPT/HCPCS: 36415; 80053; 82043; 82570; 84439; 84443; 85025; G0103